=== PATIENT | female | born 1990 | race Caucasian/White ===

== ENCOUNTER 2016-11-16 19:57 | Emergency (ER) | payer BC ==
[2016-11-16] MEDS ORDERED: MUPIROCIN 2% OINTMENT 22 GM TP ONE (20:38)
--- NOTE | 2016-11-16 20:42 | ER Document Report ---
ED Skin Rash/Insect Bite/Abscs - General Chief Complaint: Skin Sore(s) Stated Complaint: POSSIBLE ABSCESS Time Seen by Provider: 11/16/16 20:16 Mode of Arrival: Ambulatory Information source: Patient Notes: Patient is a 26-year-old female who presents to the ER today for very large blister on the bottom of her right foot that started 2 days ago. Patient does not know what caused the blister, does not know if it was her shoes are not, but states it is very painful. She was told not to pop the blisters that she has not. She denies any redness, drainage from the area, fevers or chills. - Related Data Allergies/Adverse Reactions: morphine Allergy (Verified 11/16/16 20:02) Past Medical History - General Information source: Patient - Social History Smoking Status: Current Some Day Smoker Chew tobacco use (# tins/day): No Frequency of alcohol use: Occasional Drug Abuse: None Family History: Reviewed & Not Pertinent Patient has suicidal ideation: No Patient has homicidal ideation: No Renal/ Medical History: Denies: Hx Peritoneal Dialysis Surgical Hx: Negative Review of Systems - Review of Systems Constitutional: No symptoms reported EENT: No symptoms reported Cardiovascular: No symptoms reported Respiratory: No symptoms reported Gastrointestinal: No symptoms reported Genitourinary: No symptoms reported Female Genitourinary: No symptoms reported Musculoskeletal: No symptoms reported Skin: See HPI Hematologic/Lymphatic: No symptoms reported Neurological/Psychological: No symptoms reported Physical Exam - Vital signs Vitals: Temp Pulse Resp BP Pulse Ox 98.9 F 10 L 18 126/83 H 96 11/16/16 20:03 11/16/16 20:03 11/16/16 20:03 11/16/16 20:03 11/16/16 20:03 - Notes Notes: PHYSICAL EXAMINATION: GENERAL: Well-appearing and in no acute distress. HEAD: Atraumatic, normocephalic. EYES: Pupils equal round and reactive to light, extraocular movements intact, sclera anicteric, conjunctiva are normal. NECK: Normal range of motion, supple without lymphadenopathy LUNGS: CTAB and equal. No wheezes rales or rhonchi. HEART: Regular rate and rhythm without murmurs EXTREMITIES: Normal range of motion, no pitting edema. No cyanosis. NEUROLOGICAL: Cranial nerves grossly intact. Normal sensory/motor exams. PSYCH: Normal mood, normal affect. SKIN: Warm, Dry, normal turgor, blister, 4 cm x 2 cm to the plantar surface of the right foot at the base of the fifth digit, tender to palpation, no erythema , no drainage Course - Re-evaluation Re-evalutation: 11/16/16 20:40 Blister was drained with 18-gauge needle successfully with clear/yellow fluid released. Patient was given Bactroban ointment to apply to the area 5 days. She was given that from the emergency department. No prescription needed. - Vital Signs Vital signs: Temp Pulse Resp BP Pulse Ox 98.8 F 89 16 122/64 100 11/16/16 21:01 11/16/16 21:01 11/16/16 21:01 11/16/16 21:01 11/16/16 21:01 Procedures - Incision and Drainage Right Foot Time completed: 19:00 Type: Simple I&D procedure: Other - alcohol Incision Method: Incision made with needle Amount/type of drainage: clear/yellow fluid Discharge - Discharge Clinical Impression: Blister of foot without infection Qualifiers: Encounter type: initial encounter Laterality: right Qualified Code(s): S90.821A - Blister (nonthermal), right foot, initial encounter Condition: Stable Disposition: HOME, SELF-CARE Additional Instructions: Apply the Bactroban ointment twice a day for 5 days. Keep the area covered with bandaging return immediately for any new or worsening symptoms. Follow up with primary care provider, call tomorrow to make followup appointment. Forms: Return to Work
[2016-11-16 21:04] VITALS: BP 122/64
== END 2016-11-16 21:05 | disposition home or self-care (01) ==
LOC: ER 19:57
PROC: 0H9MXZZ Drainage of Right Foot Skin, External Approach (ICD-10-PCS; principal; 2016-11-16)
DX: S90.821A Blister (nonthermal), right foot, initial encounter (principal); X58.XXXA Exposure to other specified factors, initial encounter; F17.200 Nicotine dependence, unspecified, uncomplicated; Z88.6 Allergy status to analgesic agent
CPT/HCPCS: 99283; 10060; J3490